=== PATIENT | male | born 1945 | race Caucasian/White ===

== ENCOUNTER → 2020-12-05 | Outpatient (CLI) | payer OTHER, MEDICARE ==
[~2020-12-05] MED LIST: AMLO10 PO; Bacid1 EACH PO; Cipro500 MG PO; ELIQUIS5 MG PO; Fish Oil 10001000 MG PO; GABA300 PO; METO10 PO; PANT20 PO; SERT100 PO; TRAZ100 PO; VITAMIN D3400 UNI2 PO; ZOCOR20 MG PO; Zantac150 MG PO
[2020-12-05 12:30] LABS: Bun/Creatinine Ratio 8.7 (12.0-20.0); Calcium, Blood 8.9 mg/dL (8.5-10.1); Creatinine, Blood 1.83 mg/dL (0.60-1.20); Potassium, Blood 3.6 mmol/L (3.5-5.5); Thyroid Stimulating Hormone 1.77 uIU/mL (0.360-4.800)
== END | disposition home or self-care (01) ==
LOC: LAB SHORT 11:49
PROVIDERS: Internal Medicine Cardiovascular Disease
DX: R00.2 Palpitations (principal); R42 Dizziness and giddiness
CPT/HCPCS: 80048; 84443

== ENCOUNTER 2021-01-20 09:42 | Day surgery (SDC) | payer OTHER ==
[~2021-01-20 09:42] MED LIST changes: +Crestor20 MG PO; -ZOCOR20 MG PO
[2021-01-20] MEDS ORDERED: K-TAB ER20 ME1 PO (11:02)
[2021-01-20] MEDS ORDERED: Prinivil10 MG PO (11:02)
[2021-01-20] MEDS ORDERED: TORSE20 PO (11:03)
--- NOTE | 2021-01-20 17:56 | NUR ---
SHIFT SUMMARY; ASSUMED CARE IN AFTERNOON FROM [facility], POST PACEMAKER PLACEMENT. PRESSURE DRESSING IN PLACE C/D/I. LEFT ARM SLING IN PLACE, INSTRUCTED TO NOT LIFT ARM. VSS, SPOUSE AT BEDSIDE IN AFTERNOON. PLEASANT AND COOPERATIVE WITH CARE. WILL CONTINUE TO TREAT AND MONITOR UNTIL CHANGE OF SHIFT.
[2021-01-21 04:11] LABS: Bun/Creatinine Ratio 10.2 (12.0-20.0); Calcium, Blood 8.8 mg/dL (8.5-10.1); Creatinine, Blood 2.16 mg/dL (0.60-1.20); Potassium, Blood 3.7 mmol/L (3.5-5.5)
--- NOTE | 2021-01-21 05:29 | NUR ---
SHIFT SUMMARY NO ACUTE CHANGES THIS SHIFT. VSS. AXO. ON RA. DUAL PACED AT TIMES. HTN NOTED, MEDS PER EMAR. SLING IN PLACE TO L ARM, NO EXCESS SWELING/REDNESS NOTED TO SITE, PT STATES AREA ONLY SLIGHTLY TENDER TO TOUCH. SUPRAPUBIC CATHETER PATENT AND DRAINING TO GRAVITY, DID NOT REQUIRE IRRIGATION THIS SHIFT.
--- NOTE | 2021-01-21 09:52 | NUR ---
CARE ASSUMPTION THIS RN ASSUMED CARE OF THIS PATIENT AT 0700. PATIENT IS A/OX4. VSS. PACEMAKER DRESSING INTACT. PATIENT REPORTS NO CHEST PAIN, PAIN OR SOB. SUPRABUPIC CATH DRAINING WITH GRAVITY. CALL LIGHT WITHIN REACH. WILL CONTINUE TO MONITOR AND PROVIDE CARE.
--- NOTE | 2021-01-21 15:38 | NUR ---
PATIENT DISCHARGE ABDIFATAH ISABEL PROVIDED PATIENT WITH DISCHARGE INSTRUCTIONS, GATHERED PATIENT BELONGINGS AND TOOK PATIENT TO PATIENT CAR VIA WHEELCHAIR.
--- NOTE | 2021-01-21 15:40 | NUR ---
PATIENT DISCHARGED AT APPROX 1540. REVIEWED DISCHARGE INSTRUCTIONS AND DISCHARGE MEDICATIONS WITH PATIENT AND HIS , NO FURTHER QUESTIONS AT TIME OF DISCHARGE. GAVE PATIENT HIS TEMPORARY PACEMAKER CARD AND PACEMAKER BOOKLET. PATIENT AWARE OF WOUND CHECK APPOINTMENT, CARDIOLOGY APPOINTMENT, AND TO SCHEDULE A FOLLOW UP APPOINTMENT WITH HIS PRIMARY CARE PROVIDER. AWARE OF PACEMAKER PRECAUTIONS AND INSTRUCTIONS. IV D/C'D BY SILVANA HERNÁNDEZ RN. ESCORTED PATIENT OUT VIA WHEELCHAIR AND HIS DROVE HIM HOME. NO FURTHER QUESTIONS AT TIME OF DISCHARGE.
== END 2021-01-21 15:43 | disposition home or self-care (01) ==
LOC: MHTC 09:42 → PCU 13:36 → MHTC 01-21 15:43
PROVIDERS: Internal Medicine Cardiovascular Disease
DX: I49.5 Sick sinus syndrome (principal); I48.0 Paroxysmal atrial fibrillation; E66.9 Obesity, unspecified; I65.23 Occlusion and stenosis of bilateral carotid arteries; E78.5 Hyperlipidemia, unspecified; R42 Dizziness and giddiness; R00.2 Palpitations; I13.0 Hypertensive heart and chronic kidney disease with heart failure and stage 1 through stage 4 chronic kidney disease, or unspecified chronic kidney disease; I50.32 Chronic diastolic (congestive) heart failure; N18.32 Chronic kidney disease, stage 3b; I71.3 Abdominal aortic aneurysm, ruptured; Z87.891 Personal history of nicotine dependence; J44.9 Chronic obstructive pulmonary disease, unspecified; Z88.8 Allergy status to other drugs, medicaments and biological substances
CPT/HCPCS: 33208; 36415; 71046; 80048; 99152; 99153; A9270; C1785; C1894; C1898; C9113; J0690; J1580; J1644; J2250; J3010; J7040

== ENCOUNTER → 2021-04-06 | Outpatient (CLI) | payer OTHER ==
[~2021-04-06] MED LIST changes: +K-TAB ER20 ME1 PO; +Prinivil10 MG PO; +TORSE20 PO
[2021-04-10 20:37] LABS: Creatinine Urine 26.4 mg/dL (27.00-270.00); Protein, Urine Quantitative 14.9 mg/dL (0.0-11.9)
== END | disposition home or self-care (01) ==
LOC: LAB SHORT 04:35 → LAB FUT 04-05 14:15
PROVIDERS: Internal Medicine Nephrology
DX: N18.30 Chronic kidney disease, stage 3 unspecified (principal); D63.1 Anemia in chronic kidney disease; N25.81 Secondary hyperparathyroidism of renal origin; E55.9 Vitamin D deficiency, unspecified; G60.9 Hereditary and idiopathic neuropathy, unspecified; E78.00 Pure hypercholesterolemia, unspecified; R76.9 Abnormal immunological finding in serum, unspecified; R94.5 Abnormal results of liver function studies; D51.8 Other vitamin B12 deficiency anemias; D52.8 Other folate deficiency anemias; D50.9 Iron deficiency anemia, unspecified
CPT/HCPCS: 81050; 82043; 82570; 84156

== ENCOUNTER 2021-09-20 13:01 | Emergency (ER) | payer OTHER ==
[~2021-09-20] VITALS: Ht 188 cm; Wt 112.5 kg
[2021-09-20 13:53] LABS: BASOPHILS ABSOLUTE AUTO 0.04 K/mm3 (0.00-0.23); BASOPHILS PERCENT AUTO 0 % (0-2); EOSINOPHILS ABSOLUTE AUTO 0.15 K/mm3 (0.00-0.68); EOSINOPHILS PERCENT AUTO 1 % (0-6); Hematocrit 28.7 % (37.0-53.0); IMMATURE GRAN ABSOLUTE AUTO 0.08 K/mm3 (0.00-0.10); IMMATURE GRAN PERCENT AUTO 1 % (0-1); LYMPHOCYTES ABSOLUTE AUTO 2.23 K/mm3 (0.84-5.20); LYMPHOCYTES PERCENT AUTO 18 % (21-46); MONOCYTES ABSOLUTE AUTO 1.08 K/mm3 (0.16-1.47); MONOCYTES PERCENT AUTO 9 % (4-13); Mean Corpuscular HGB 22.8 pg (26.0-34.0); Mean Corpuscular HGB Conc 31.4 g/dL (31.5-36.5); Mean Corpuscular Volume 73 fL (80-100); Mean Platelet Volume 9.5 fL (9.1-12.4); NEUTROPHILS ABSOLUTE AUTO 8.71 K/mm3 (1.96-9.15); NEUTROPHILS PERCENT AUTO 71 % (41-73); Platelet Count 237 K/mm3 (150-400); RDW Coefficient Variation 17.6 % (11.7-14.2); RDW Standard Deviation 46.9 fL (35.1-46.3); Red Blood Cell Count 3.94 M/mm3 (4.30-5.90); White Blood Cell Count 12.29 K/mm3 (4.00-11.30)
[2021-09-20 14:17] LABS: Albumin, Blood 3.3 g/dL (3.4-5.0); Albumin/Globulin Ratio 0.8 (0.8-1.8); Bilirubin, Total 0.4 mg/dL (0.1-1.0); Bun/Creatinine Ratio 10.1 (12.0-20.0); Calcium, Blood 9.4 mg/dL (8.5-10.1); Creatinine, Blood 1.99 mg/dL (0.60-1.20); Globulin, Blood 4.2 g/dL (2.2-4.0); Potassium, Blood 3.7 mmol/L (3.5-5.5); Total Protein, Blood 7.5 g/dL (6.4-8.2)
[2021-09-20 15:03] LABS: Source, Urine Clean Catch
[2021-09-20 15:08] LABS: Appearance, Urine Clear (Clear); Bilirubin, Urine Neg (Neg); Blood, Urine 4+ (Neg); Glucose Qualitative, Urine Neg (Neg); Ketones, Urine Neg (Neg); Leukocyte Esterase, Urine 2+ (Neg); Nitrite, Urine Neg (Neg); Protein, Urine Neg (Neg); Urobilinogen, Urine NORM (Normal)
[2021-09-20 16:21] LABS: Color, Urine Pale Yellow (P-Yellow)
[2021-09-20 16:23] LABS: Bacteria Mod /hpf; Red Blood Cells, Urine 0-2 /hpf (0-2); Squamous Epithelial Cells Rare /hpf (Few); White Blood Cells, Urine 0-2 /hpf (0-5)
== END 2021-09-20 17:00 | disposition home or self-care (01) ==
LOC: ER 13:01
PROVIDERS: Student in an Organized Health Care Education/Training Program
DX: N39.0 Urinary tract infection, site not specified (principal); I10 Essential (primary) hypertension; C61 Malignant neoplasm of prostate; W19.XXXA Unspecified fall, initial encounter; Z79.899 Other long term (current) drug therapy; Z79.01 Long term (current) use of anticoagulants; Z88.8 Allergy status to other drugs, medicaments and biological substances; Z87.891 Personal history of nicotine dependence
CPT/HCPCS: 36415; 80053; 81001; 85025; 93005; 93010; J0696; J7030

== ENCOUNTER → 2021-10-13 | Outpatient (CLI) | payer OTHER | END | disposition home or self-care (01) | LOC: LAB SHORT 17:19 | DX: N39.0 Urinary tract infection, site not specified (principal) | CPT/HCPCS: 87086 ==

== ENCOUNTER 2022-01-18 12:50 | Day surgery (SDC) | payer OTHER ==
[~2022-01-18] VITALS: Ht 188 cm; Wt 108.6 kg
[2022-01-18] MEDS ORDERED: ELIQUIS5 M2 PO (13:59)
[2022-01-18] MEDS ORDERED: METO50ER PO (14:02)
[2022-01-18] MEDS ORDERED: ALBU90OI INH (14:04)
[2022-01-18] MEDS ORDERED: FAMO20 PO (14:05)
== END 2022-01-18 14:41 | disposition home or self-care (01) ==
LOC: ORSCSDS 12:50
PROVIDERS: Ophthalmology
PROC: 08DJ3ZZ Extraction of Right Lens, Percutaneous Approach (ICD-10-PCS; principal; 2022-01-18 14:00)
DX: H25.11 Age-related nuclear cataract, right eye (principal); H21.81 Floppy iris syndrome; I12.9 Hypertensive chronic kidney disease with stage 1 through stage 4 chronic kidney disease, or unspecified chronic kidney disease; N18.30 Chronic kidney disease, stage 3 unspecified; I50.9 Heart failure, unspecified; Z95.0 Presence of cardiac pacemaker; E78.5 Hyperlipidemia, unspecified; E66.9 Obesity, unspecified; Z68.30 Body mass index [BMI] 30.0-30.9, adult; I48.0 Paroxysmal atrial fibrillation; I71.21 Aneurysm of the ascending aorta, without rupture; Z87.891 Personal history of nicotine dependence; Z79.899 Other long term (current) drug therapy
CPT/HCPCS: J2001; J2250; J3010; J3301; J7040; V2632

== ENCOUNTER 2022-01-25 10:51 | Day surgery (SDC) | payer OTHER ==
[~2022-01-25] VITALS: Ht 188 cm; Wt 108.6 kg
[~2022-01-25 10:51] MED LIST changes: +ALBU90OI INH; +ELIQUIS5 M2 PO; +FAMO20 PO; +METO50ER PO
--- NOTE | 2022-01-25 11:30 | NUR ---
01/25/22 1130 AMEENA GURROLA P: 1129 T: 1134
== END 2022-01-25 13:05 | disposition home or self-care (01) ==
LOC: ORSCSDS 10:51
PROVIDERS: Ophthalmology
PROC: 08DK3ZZ Extraction of Left Lens, Percutaneous Approach (ICD-10-PCS; principal; 2022-01-25 13:30)
DX: H25.12 Age-related nuclear cataract, left eye (principal); H21.81 Floppy iris syndrome; Z96.1 Presence of intraocular lens; I48.0 Paroxysmal atrial fibrillation; I12.9 Hypertensive chronic kidney disease with stage 1 through stage 4 chronic kidney disease, or unspecified chronic kidney disease; N18.9 Chronic kidney disease, unspecified; Z95.0 Presence of cardiac pacemaker; R06.00 Dyspnea, unspecified; E66.9 Obesity, unspecified; Z68.30 Body mass index [BMI] 30.0-30.9, adult; Z87.891 Personal history of nicotine dependence; Z79.899 Other long term (current) drug therapy
CPT/HCPCS: J2001; J2250; J3010; J3301; J7040; V2632

== ENCOUNTER 2022-02-10 09:43 | Emergency (ER) | payer OTHER ==
[2022-02-10] MEDS ORDERED: FOLI1 PO (11:34)
[2022-02-10] MEDS ORDERED: HYDR1TAB94 PO (11:48)
[2022-02-10] MEDS ORDERED: Cipro500 MG PO (11:48)
== END 2022-02-10 12:16 | disposition home or self-care (01) ==
DX: N13.30 Unspecified hydronephrosis (principal); I10 Essential (primary) hypertension; I48.91 Unspecified atrial fibrillation; Z87.891 Personal history of nicotine dependence; Z79.899 Other long term (current) drug therapy; Z79.01 Long term (current) use of anticoagulants

== ENCOUNTER 2022-02-12 12:35 | Inpatient (IN) | payer OTHER ==
[~2022-02-12] VITALS: Ht 188 cm; Wt 103.8 kg
[~2022-02-12 12:35] MED LIST changes: +FOLI1 PO; +HYDR1TAB94 PO
[2022-02-12 13:55] LABS: BASOPHILS ABSOLUTE AUTO 0.03 K/mm3 (0.00-0.23); BASOPHILS PERCENT AUTO 0 % (0-2); EOSINOPHILS PERCENT AUTO 0 % (0-6); Hematocrit 37.3 % (37.0-53.0); Hemoglobin 11.8 g/dL (13.5-17.5); IMMATURE GRAN ABSOLUTE AUTO 0.11 K/mm3 (0.00-0.10); IMMATURE GRAN PERCENT AUTO 1 % (0-1); LYMPHOCYTES ABSOLUTE AUTO 1.09 K/mm3 (0.84-5.20); LYMPHOCYTES PERCENT AUTO 7 % (21-46); MONOCYTES ABSOLUTE AUTO 1.57 K/mm3 (0.16-1.47); MONOCYTES PERCENT AUTO 10 % (4-13); Mean Corpuscular HGB 24.3 pg (26.0-34.0); Mean Corpuscular HGB Conc 31.6 g/dL (31.5-36.5); Mean Corpuscular Volume 77 fL (80-100); Mean Platelet Volume 9.6 fL (9.1-12.4); NEUTROPHILS ABSOLUTE AUTO 13.53 K/mm3 (1.96-9.15); NEUTROPHILS PERCENT AUTO 83 % (41-73); Platelet Count 273 K/mm3 (150-400); RDW Coefficient Variation 24.9 % (11.7-14.2); RDW Standard Deviation 65.6 fL (35.1-46.3); Red Blood Cell Count 4.85 M/mm3 (4.30-5.90); White Blood Cell Count 16.33 K/mm3 (4.00-11.30)
[2022-02-12 14:35] LABS: Albumin, Blood 3.3 g/dL (3.4-5.0); Albumin/Globulin Ratio 0.7 (0.8-1.8); Bilirubin, Total 0.7 mg/dL (0.1-1.0); Bun/Creatinine Ratio 14.2 (12.0-20.0); Creatinine, Blood 2.33 mg/dL (0.60-1.20); Potassium, Blood 3.5 mmol/L (3.5-5.5); Total Protein, Blood 8.3 g/dL (6.4-8.2)
[2022-02-12 15:00] LABS: Source, Urine Foley catheter
[2022-02-12 15:06] LABS: Appearance, Urine Turbid (Clear); Bilirubin, Urine Neg (Neg); Blood, Urine 5+ (Neg); Glucose Qualitative, Urine Neg (Neg); Ketones, Urine Neg (Neg); Leukocyte Esterase, Urine 2+ (Neg); Nitrite, Urine Neg (Neg); Protein, Urine 4+ (Neg); Specific Gravity, Urine 1.015 (1.003-1.022); Urobilinogen, Urine NORM (Normal)
[2022-02-12 15:21] LABS: Red Blood Cells, Urine TNTC /hpf (0-2)
[2022-02-12 15:22] LABS: Amorphous Light (0-Heavy); Bacteria Mod /hpf; Renal Epithelial Few /hpf (0-Rare); Squamous Epithelial Cells Rare /hpf (Few)
[2022-02-12 15:29] LABS: Influenza A, PCR NEGATIVE (NEGATIVE); Influenza B, PCR NEGATIVE (NEGATIVE); Resp Syncytial Virus, PCR NEGATIVE (NEGATIVE); SARS-Cov-2 (COVID-19) PCR, MMC NEGATIVE (NEGATIVE)
[2022-02-12] MEDS ORDERED: EPOGEN4000 UNIT/ (20:19)
[2022-02-12] MEDS ORDERED: PANT20 PO (20:22)
--- NOTE | 2022-02-12 20:25 | NUR ---
Patient admitted for UTI r/t Suprapubic catheter, ED RN reported patient c/o N/V unable to take home meds, hematuria since saturday. Patient hypertension, recent vitals showed Systolic >204, IV Metop was given. RN said she would recheck BP, and notify MD. This RN called admitting MD Dr. Lopez, instructed to give more IV Metop, and discussed ICU vs PCU unit. MD said it was okay to transfer to PCU [facility]. Called ED Charge to report change in transfer, the charge said that the recent BP was 173/97, IV PRN worked and vitals stable. Patient arrived to medical floor at 1845. Patient had full body rigors, verbalized feeling that he could not breath, and was cold. ekg tech stated these symptoms suddenly developed while in the elevator, the family confirmed this. He was comfortable in ED, and change in condition occured, during transport. Difficult to obtain vital r/t full body shaking. Patient sitting in bed in tripod position, applied 2lpm NC, sats varied between 88%-92% d/t shallow/rapid RR, RR was 30/minute. Called admitting MD Dr. Lopez, and reported concerns, MD stated he was no longer in hosptial & to call charge nurses and call Rapid Response. Dr. Steele, RT, resposne team & bedside, stabilzied patient and moved patient to ICU. Patient appears more comfortable, no longer shaking, RR even/nonlabored, patient continues to endore "difficulty breathing". Called and gave handoff report to DIRECTOR OF RESERVATIONS.
[2022-02-12 20:31] LABS: Creatine Kinase MB 3.5 ng/mL (0.0-3.6); Creatine Kinase MB Index 0.9 (0.0-4.0)
[2022-02-13 04:36] LABS: BASOPHILS ABSOLUTE AUTO 0.02 K/mm3 (0.00-0.23); BASOPHILS PERCENT AUTO 0 % (0-2); EOSINOPHILS PERCENT AUTO 0 % (0-6); Hematocrit 34.7 % (37.0-53.0); Hemoglobin 10.9 g/dL (13.5-17.5); IMMATURE GRAN ABSOLUTE AUTO 0.05 K/mm3 (0.00-0.10); IMMATURE GRAN PERCENT AUTO 1 % (0-1); LYMPHOCYTES ABSOLUTE AUTO 0.63 K/mm3 (0.84-5.20); LYMPHOCYTES PERCENT AUTO 8 % (21-46); MONOCYTES ABSOLUTE AUTO 0.65 K/mm3 (0.16-1.47); MONOCYTES PERCENT AUTO 8 % (4-13); Mean Corpuscular HGB 24.3 pg (26.0-34.0); Mean Corpuscular HGB Conc 31.4 g/dL (31.5-36.5); Mean Corpuscular Volume 78 fL (80-100); Mean Platelet Volume 9.3 fL (9.1-12.4); NEUTROPHILS ABSOLUTE AUTO 6.75 K/mm3 (1.96-9.15); NEUTROPHILS PERCENT AUTO 83 % (41-73); Platelet Count 231 K/mm3 (150-400); RDW Standard Deviation 66.6 fL (35.1-46.3); Red Blood Cell Count 4.48 M/mm3 (4.30-5.90)
[2022-02-13 04:53] LABS: Albumin, Blood 2.9 g/dL (3.4-5.0); Albumin/Globulin Ratio 0.7 (0.8-1.8); Bilirubin, Total 0.4 mg/dL (0.1-1.0); Bun/Creatinine Ratio 14.2 (12.0-20.0); Calcium, Blood 9.3 mg/dL (8.5-10.1); Creatinine, Blood 1.97 mg/dL (0.60-1.20); Globulin, Blood 4.3 g/dL (2.2-4.0); Magnesium, Blood 2.3 mg/dL (1.6-2.4); Potassium, Blood 3.3 mmol/L (3.5-5.5); Total Protein, Blood 7.2 g/dL (6.4-8.2)
[2022-02-13 06:10] LABS: Source, Urine Suprapubic Cath
--- NOTE | 2022-02-13 06:10 | NUR ---
SHIT SUMMARY: RIGHT UPPER ARM POWERGLIDE PLACED. LR INFUSING @ 125ML/HR X2 BAGS. UNCONTROLLED HTN. 10MG HYDRALAZINE GIVEN, THEN 20MG HYDRALAZINE GIVEN, THEN 10MG LABETALOL IVP. PT SUSTAINED HR BETWEEN 60-70S. SMALL IMPROVEMENT WITH LABETALOL IN HTN. SUPRAPUBIC CATHERTER EXCHANGED AND URINE SENT TO LAB. ZOFRAN GIVEN FOR NAUSEA/DRY HEAVING. TYLENOL GIVEN FOR ELEVATED TEMP. PT ON 5L NC. DENIES CHEST PAIN. TROPONINS TRENDING UPWARD.
[2022-02-13 06:19] LABS: Appearance, Urine Hazy (Clear); Bilirubin, Urine Neg (Neg); Blood, Urine 5+ (Neg); Color, Urine Yellow (P-Yellow); Glucose Qualitative, Urine Neg (Neg); Ketones, Urine Neg (Neg); Leukocyte Esterase, Urine 2+ (Neg); Nitrite, Urine Neg (Neg); Protein, Urine 3+ (Neg); Specific Gravity, Urine 1.015 (1.003-1.022); Urobilinogen, Urine NORM (Normal)
[2022-02-13 06:36] LABS: Bacteria Mod /hpf; Red Blood Cells, Urine 50-100 /hpf (0-2); Squamous Epithelial Cells Rare /hpf (Few)
--- NOTE | 2022-02-13 09:18 | NUR ---
LABETOLOL WAS GIVEN AT 0815 FOR HYPERTENSION, PERSISTENT. BLOOD PRESSURE ONE HOUR LATER IS STILL QUITE HIGH.
[2022-02-13] MEDS ORDERED: TIOT18 INH (10:21)
[2022-02-13] MEDS ORDERED: Acetic Acid1000 ML IR (10:22)
[2022-02-13] MEDS ORDERED: LACT PO (10:23)
[2022-02-13] MEDS ORDERED: PRED FORTE5 ML UD (11:59)
--- NOTE | 2022-02-13 13:21 | NUR ---
1200 Pt said that he did not want to have lunch; states that he just doesn't feel good, felt nauseated.
--- NOTE | 2022-02-13 13:25 | NUR ---
1200 Dr. Lopez rounded just a few minutes ago. Spoke with him about concerns re: persistently high blood pressure, PRN medications given, and updated home med reconciliation with pt's . Doctor states that he will look over the meds and order as indicated.
--- NOTE | 2022-02-13 14:48 | NUR ---
The pt has been c/o nausea and dry heaves since around noon. This abated somewhat about an hour ago, and oral antihypertensives were given as ordered. He was able to keep them down. is at the bedside. Pt has basically been napping in between conversations and nursing care, states that he just doesn't feel well. Has been asking for and drinking water, but has not wanted anything else by mouth.
--- NOTE | 2022-02-13 16:39 | NUR ---
Dr Lopez here; discussed the pt's ongoing hypertension. New order received for nicardipine gtt. Started at this time. Pt continues to c/o nausea and dry heaves.
--- NOTE | 2022-02-13 18:17 | NUR ---
Pt continues to have nausea, dry heaves. He is alert, oriented, and appropriate in conversation. No neurological deficits noted. Blood pressure remains persistent, nicardipine gtt titrated up.
--- NOTE | 2022-02-13 18:51 | NUR ---
Call to Dr. Lopez to update on pt's blood pressure and max dose of nicardipine gtt at this time. New order received.
--- NOTE | 2022-02-13 19:15 | NUR ---
ASSUMPTION OF CARE NOTE PT IS ON ROOM AIR, ALERT AND ORIENTED X4. IS AT BEDSIDE. HE IS SR ON THE MONITOR. NICARDIPINE INFUSING FOR HTN. NO COMPLAINTS OF CHEST PAIN/PRESSURE. NO S/S OF ACUTE RESP DISTRESS. SUPRAPUBIC CATH INTACT AND DRAINING. NO S/S OF ACUTE DISTRESS NOTED AT TIME OF ASSUMPTION OF CARE.
--- NOTE | 2022-02-13 20:02 | NUR ---
NOTIFIED DR PETERSEN OF PT PERSISTANT NAUSEA/DRY HEAVING DESPITE RECENTLY BEING MEDICATED W/ZOFRAN. ORDERS GIVEN, SEE EMAR
--- NOTE | 2022-02-14 06:37 | NUR ---
SHIFT SUMMERY NICARDIPINE DRIP WAS WEANED OFF LAST NIGHT. PT NAUSEA RESOLVED. BP WNL AT THIS TIME. AFEBRILE. SUPRAPUBIC CATH PRESENT, CHRONIC. NO ACUTE EVENTS OVER NIGHT. PT IS ON ROOM AIR, SR ON THE MONITOR.
[2022-02-14 09:01] LABS: BASOPHILS ABSOLUTE AUTO 0.02 K/mm3 (0.00-0.23); BASOPHILS PERCENT AUTO 0 % (0-2); EOSINOPHILS ABSOLUTE AUTO 0.11 K/mm3 (0.00-0.68); EOSINOPHILS PERCENT AUTO 2 % (0-6); Hematocrit 33.5 % (37.0-53.0); Hemoglobin 10.4 g/dL (13.5-17.5); IMMATURE GRAN ABSOLUTE AUTO 0.04 K/mm3 (0.00-0.10); IMMATURE GRAN PERCENT AUTO 1 % (0-1); LYMPHOCYTES ABSOLUTE AUTO 1.13 K/mm3 (0.84-5.20); LYMPHOCYTES PERCENT AUTO 15 % (21-46); MONOCYTES ABSOLUTE AUTO 0.67 K/mm3 (0.16-1.47); MONOCYTES PERCENT AUTO 9 % (4-13); Mean Corpuscular HGB 24.6 pg (26.0-34.0); Mean Corpuscular Volume 79 fL (80-100); Mean Platelet Volume 9.4 fL (9.1-12.4); NEUTROPHILS ABSOLUTE AUTO 5.54 K/mm3 (1.96-9.15); NEUTROPHILS PERCENT AUTO 74 % (41-73); Platelet Count 252 K/mm3 (150-400); RDW Coefficient Variation 24.9 % (11.7-14.2); RDW Standard Deviation 68.4 fL (35.1-46.3); Red Blood Cell Count 4.23 M/mm3 (4.30-5.90); White Blood Cell Count 7.51 K/mm3 (4.00-11.30)
[2022-02-14 09:20] LABS: Bun/Creatinine Ratio 12.4 (12.0-20.0); Calcium, Blood 9.2 mg/dL (8.5-10.1); Creatinine, Blood 1.7 mg/dL (0.60-1.20)
--- NOTE | 2022-02-14 09:43 | NUR ---
ASSUMED CARE REPORT FROM TK ISABEL AT 0700. PT RESTING IN BED A&OX 4. FOLLOWS DIRECTIONS, ANSWERS QUESTIONS APPROPRIATELY. STATES HE IS FEELING BETTER TODAY OTHER THAN NAUSEA POST BREAKFAST, RESOLVED c PHENERGAN. ATE 75% OF BREAKFAST. SR, RATE 80, ON DEMAND PACER. BP STABLE. NICARDIPINE GTT ON STANDBY. ORAL MEDS GIVEN. ABD ROUND, SOFT, NON TENDER. BT X 4. MAEW, UP TO RECLINER. USES CALL LIGHT APPROPRIATELY. WILL CONTINUE TO MONITOR.
--- NOTE | 2022-02-14 18:44 | NUR ---
SHIFT SUMMARY NO ACUTE CHANGES THIS SHIFT. STATUS CHANGED TO MED s TELE. DENIES NEEDS OR COMPLAINTS. UP TO CHAIR FOR 2 HOURS. STANDBY ASSIST c WALKER. BP STABLE. AT BEDSIDE. SUPRAPUBIC HUGHES PATENT, 1600 ML OUT THIS SHIFT. WILL CONTINUE TO MONITOR UNTIL REPORT TO ONCOMING NURSE.
--- NOTE | 2022-02-14 19:15 | NUR ---
ASSUMED CARE OF PT @1900 FROM BOONE ISABEL. PT RESTING COMFORTABLY. A&O X4. BEDSIDE. PG DAREK PATENT W/SALINE LOCK, IV 20GA L HAND PATENT W/SALINE LOCK. SUPRAPUBIC CATH PRESENT AND DRAINING TO GRAVITY.
[2022-02-15 04:41] LABS: BASOPHILS ABSOLUTE AUTO 0.04 K/mm3 (0.00-0.23); BASOPHILS PERCENT AUTO 1 % (0-2); EOSINOPHILS ABSOLUTE AUTO 0.14 K/mm3 (0.00-0.68); EOSINOPHILS PERCENT AUTO 3 % (0-6); Hematocrit 31.8 % (37.0-53.0); IMMATURE GRAN ABSOLUTE AUTO 0.04 K/mm3 (0.00-0.10); IMMATURE GRAN PERCENT AUTO 1 % (0-1); LYMPHOCYTES ABSOLUTE AUTO 1.86 K/mm3 (0.84-5.20); LYMPHOCYTES PERCENT AUTO 33 % (21-46); MONOCYTES ABSOLUTE AUTO 0.61 K/mm3 (0.16-1.47); MONOCYTES PERCENT AUTO 11 % (4-13); Mean Corpuscular HGB 24.4 pg (26.0-34.0); Mean Corpuscular HGB Conc 31.4 g/dL (31.5-36.5); Mean Corpuscular Volume 78 fL (80-100); Mean Platelet Volume 9.2 fL (9.1-12.4); NEUTROPHILS ABSOLUTE AUTO 2.89 K/mm3 (1.96-9.15); NEUTROPHILS PERCENT AUTO 52 % (41-73); Platelet Count 227 K/mm3 (150-400); RDW Coefficient Variation 24.5 % (11.7-14.2); RDW Standard Deviation 66.7 fL (35.1-46.3); Red Blood Cell Count 4.09 M/mm3 (4.30-5.90); White Blood Cell Count 5.58 K/mm3 (4.00-11.30)
--- NOTE | 2022-02-15 04:42 | NUR ---
PT HYPERTENSIVE. 173/82 PRN LABETALOL GIVEN.
[2022-02-15 05:02] LABS: Creatinine, Blood 1.62 mg/dL (0.60-1.20); Magnesium, Blood 2.3 mg/dL (1.6-2.4); Potassium, Blood 3.6 mmol/L (3.5-5.5)
--- NOTE | 2022-02-15 06:37 | NUR ---
SUMMARY: NO ACUTE EVENTS OVERNIGHT. PT SLEPT MOST OF THE NIGHT. HYPERTENSION TREATED W/PRN LABETALOL. HR 60'S, SBP 150-170'S. RR <20, SPO2 >94%. SUPRAPUBIC CATH PATENT W/1600MLS URINE OUTPUT THIS SHIFT.
[2022-02-15] MEDS ORDERED: AMLO10 PO (11:39)
[2022-02-15] MEDS ORDERED: CATAPRES0.1 MG PO (11:41)
[2022-02-15] MEDS ORDERED: LEVFLO500 PO (11:57)
--- NOTE | 2022-02-15 12:43 | NUR ---
DISCHARGE ALL INSTRUCTIONS REVIEWED c PT AND SPOUSE. VERBALIZED UNDERSTANDING. MEDS FAXED TO [facility]. IVS REMOVED. ALL BELONGINGS SENT c PT. ESCORTED OUT IN .
== END 2022-02-15 13:01 | disposition home or self-care (01) | DRG 698 ==
LOC: ER 12:35 → ICUW 16:18 → MEDS 16:18 → ICUW 19:53
PROVIDERS: Emergency Medicine; Family Medicine; Student in an Organized Health Care Education/Training Program; ADMIT Student in an Organized Health Care Education/Training Program
DX: T83.518A Infection and inflammatory reaction due to other urinary catheter, initial encounter (principal); A41.81 Sepsis due to Enterococcus; N39.0 Urinary tract infection, site not specified; N17.9 Acute kidney failure, unspecified; I50.32 Chronic diastolic (congestive) heart failure; I13.0 Hypertensive heart and chronic kidney disease with heart failure and stage 1 through stage 4 chronic kidney disease, or unspecified chronic kidney disease; N18.30 Chronic kidney disease, stage 3 unspecified; I48.91 Unspecified atrial fibrillation; I16.0 Hypertensive urgency; Z20.822 Contact with and (suspected) exposure to COVID-19; B96.89 Other specified bacterial agents as the cause of diseases classified elsewhere; G25.81 Restless legs syndrome; F32.A Depression, unspecified; J44.9 Chronic obstructive pulmonary disease, unspecified; K21.9 Gastro-esophageal reflux disease without esophagitis; M10.9 Gout, unspecified; E78.5 Hyperlipidemia, unspecified; Z85.46 Personal history of malignant neoplasm of prostate; Z79.899 Other long term (current) drug therapy; Z79.811 Long term (current) use of aromatase inhibitors; Z79.01 Long term (current) use of anticoagulants; Z79.51 Long term (current) use of inhaled steroids; Z79.891 Long term (current) use of opiate analgesic; Z79.2 Long term (current) use of antibiotics; Z92.3 Personal history of irradiation; Z98.890 Other specified postprocedural states; Z98.49 Cataract extraction status, unspecified eye; Z87.891 Personal history of nicotine dependence; Z95.0 Presence of cardiac pacemaker; Y84.6 Urinary catheterization as the cause of abnormal reaction of the patient, or of later complication, without mention of misadventure at the time of the procedure
CPT/HCPCS: 0241U; 36415; 51702; 71045; 76770; 80048; 80053; 81001; 82550; 82553; 83605; 83690; 83735; 83880; 84145; 84484; 85025; 87077; 87086; 87186; 93005; 93010; 93308; 93321; 96365; 96375; 99285-25; A9270; C1751; J0360; J0696; J1644; J2185; J2270; J2405; J2543; J2550; J7030; J7050; J7120

== ENCOUNTER 2023-05-05 14:10 | Inpatient (IN) | payer OTHER ==
[~2023-05-05] VITALS: Ht 188 cm; Wt 113.4 kg
[~2023-05-05 14:10] MED LIST changes: +Acetic Acid1000 ML IR; +CATAPRES0.1 MG PO; +EPOGEN4000 UNIT/; +LACT PO; +LEVFLO500 PO; +LISI20 PO; +PRED FORTE5 ML UD; -Prinivil10 MG PO; +TIOT18 INH
[2023-05-05 15:14] LABS: BASOPHILS ABSOLUTE AUTO 0.05 K/mm3 (0.00-0.23); BASOPHILS PERCENT AUTO 1 % (0-2); EOSINOPHILS ABSOLUTE AUTO 0.19 K/mm3 (0.00-0.68); EOSINOPHILS PERCENT AUTO 3 % (0-6); Hematocrit 37.9 % (37.0-53.0); Hemoglobin 13.1 g/dL (13.5-17.5); IMMATURE GRAN ABSOLUTE AUTO 0.07 K/mm3 (0.00-0.10); IMMATURE GRAN PERCENT AUTO 1 % (0-1); LYMPHOCYTES ABSOLUTE AUTO 1.35 K/mm3 (0.84-5.20); LYMPHOCYTES PERCENT AUTO 19 % (21-46); MONOCYTES ABSOLUTE AUTO 0.66 K/mm3 (0.16-1.47); MONOCYTES PERCENT AUTO 9 % (4-13); Mean Corpuscular HGB 29.2 pg (26.0-34.0); Mean Corpuscular HGB Conc 34.6 g/dL (31.5-36.5); Mean Corpuscular Volume 85 fL (80-100); Mean Platelet Volume 8.7 fL (9.1-12.4); NEUTROPHILS ABSOLUTE AUTO 4.75 K/mm3 (1.96-9.15); NEUTROPHILS PERCENT AUTO 67 % (41-73); Platelet Count 324 K/mm3 (150-400); RDW Standard Deviation 40.2 fL (35.1-46.3); Red Blood Cell Count 4.48 M/mm3 (4.30-5.90); White Blood Cell Count 7.07 K/mm3 (4.00-11.30)
[2023-05-05 15:40] LABS: Albumin, Blood 3.5 g/dL (3.4-5.0); Albumin/Globulin Ratio 0.7 (0.8-1.8); Bilirubin, Total 0.6 mg/dL (0.1-1.0); Bun/Creatinine Ratio 12.7 (12.0-20.0); Calcium, Blood 9.3 mg/dL (8.5-10.1); Creatinine, Blood 1.34 mg/dL (0.60-1.20); Globulin, Blood 4.7 g/dL (2.2-4.0); Potassium, Blood 4.7 mmol/L (3.5-5.5); Total Protein, Blood 8.2 g/dL (6.4-8.2)
[2023-05-05] MEDS ORDERED: PANT20 PO (18:33)
[2023-05-05 18:38] LABS: Source, Urine Suprapubic Cath
[2023-05-05 18:56] LABS: Appearance, Urine Cloudy (Clear); Bilirubin, Urine Neg (Neg); Blood, Urine 5+ (Neg); Color, Urine Brown (P-Yellow); Glucose Qualitative, Urine Neg (Neg); Ketones, Urine Neg (Neg); Leukocyte Esterase, Urine 3+ (Neg); Nitrite, Urine Pos (Neg); Protein, Urine 3+ (Neg); Urobilinogen, Urine NORM (Normal)
[2023-05-05 19:08] LABS: Bacteria Many /hpf; Granular Casts 0-2 /lpf (0); Squamous Epithelial Cells Rare /hpf (Few)
[2023-05-05] MEDS ORDERED: CefTRIAXone Sodium 1,000 MG in NS 50 ML IV ONE (19:35)
[2023-05-05] MEDS ORDERED: NS 1,000 ML IV SCH ×2 (19:35→20:25)
[2023-05-05] MEDS ORDERED: Acetaminophen 325 MG TABLET PO PRN (20:25)
[2023-05-05] MEDS ORDERED: FLU VACC QS2023-24(6MOS UP)/PF 60 MCG/0.5 ML SYRINGE IM ONE (20:25)
[2023-05-05] MEDS ORDERED: Ondansetron HCl 2 MG / ML 2ML Vial IV PRN (20:25)
[2023-05-05] MEDS ORDERED: CloNIDine 0.1 MG Tab PO PRN (20:35)
[2023-05-05] MEDS ORDERED: Rosuvastatin Calcium 10 MG Tab PO SCH (21:00)
[2023-05-05] MEDS ORDERED: NS 500 ML IV ONE (21:00)
[2023-05-05] MEDS ORDERED: TraZODone HCl 100 MG Tab PO SCH (21:00)
[2023-05-05] MEDS ORDERED: Apixaban 5 MG Tab PO SCH (21:00)
[2023-05-05] MEDS ORDERED: Gabapentin 300 MG Cap PO SCH (21:00)
[2023-05-05] MEDS ORDERED: Lactobacil 2-S.Thermo-Bifido 1 1 Cap PO SCH (21:00)
[2023-05-05 23:07] VITALS: BP 180/93
[2023-05-06 05:16] VITALS: BP 130/77
[2023-05-06] MEDS ORDERED: Pantoprazole Sodium 20 MG Tab PO SCH (06:00)
[2023-05-06 06:48] LABS: Bun/Creatinine Ratio 11.2 (12.0-20.0); Calcium, Blood 8.5 mg/dL (8.5-10.1); Creatinine, Blood 1.34 mg/dL (0.60-1.20); Potassium, Blood 3.6 mmol/L (3.5-5.5)
[2023-05-06 07:15] VITALS: BP 117/77
--- NOTE | 2023-05-06 08:57 | NUR ---
SHIFT SUMMARY PT ARRIVED TO ROOM 336 AROUND 2240 FROM ER VIA GURNEY WITH AT BEDSIDE. PT TRANSFERED SELF TO HOSPITAL BED WITH MINIMAL ASSIST, STAND PIVOT. HE USES A WALKER AT BASELINE. KIARA IS A&OX4, PLEASANT AND COOPERATIVE WITH CARES. VSS, ELEVATED BP WITH SYS @180, PRN CATAPRES GIVEN, ON RA. C/O GENERALIZED PAIN, MEDICATED PER EMAR. ON A REGULAR DIET, PT CONSUMES LARGE AMOUNTS OF WATER. SP CATHETER DRAINING LARGE AMOUNTS OF WATERMELON COLORED URINE. PT STATES HIS CATHETER FREQUENTLY CLOGS D/T THE SLOUGHING OF MEMBRANES FROM HIS RECONTRUCTIVE SURGERY. THIS RN WAS ABLE TO WITHDRAW BACK USING A MAURICE SYRINGE. PT HAD BROWN SOFT BM IN TOILET THIS SHIFT, BUT FLUSHED BEFORE VISUALIZATION BY THIS RN. BED IN LOWEST POSITION, CALL LIGHT WITHIN REACH. BED ALARM SET FOR PT'S SAFETY, CALLS APPROPRIATELY.
[2023-05-06] MEDS ORDERED: Lisinopril 20 MG Tab PO SCH (09:00)
[2023-05-06] MEDS ORDERED: AmLODIPine Besylate 5 MG Tab PO SCH (09:00)
[2023-05-06] MEDS ORDERED: Sertraline HCl 100 MG Tab PO SCH (09:00)
[2023-05-06] MEDS ORDERED: Enoxaparin 40 MG/0.4 ML SYR SC SCH (09:00)
[2023-05-06] MEDS ORDERED: Metoprolol Succinate 50 MG TABCR PO SCH (09:00)
[2023-05-06] MEDS ORDERED: Gabapentin 300 MG Cap PO SCH (09:00)
[2023-05-06] MEDS ORDERED: Famotidine 20 MG Tab PO SCH (09:00)
[2023-05-06] MEDS ORDERED: NS 1,000 ML IV SCH (09:40)
[2023-05-06 15:45] VITALS: BP 131/73
--- NOTE | 2023-05-06 17:52 | NUR ---
SHIFT SUMMARY Pt remains A&Ox3 this shift. [place]. brought hearing aids, dentures and electric shaver. VSS. Denies pain. Resp even nonlabored on RA. Suprapubic cath CDI, draining pale yellow with sediment noted. Tolerating meals. No acute distress this shift. Pain and safety maintained.
[2023-05-06 20:04] VITALS: BP 138/87
[2023-05-06] MEDS ORDERED: CefTRIAXone Sodium 1,000 MG in NS 50 ML IV SCH (21:00)
[2023-05-06] MEDS ORDERED: MUPIROCIN1 G1 TOP (22:37)
[2023-05-06] MEDS ORDERED: Cyclobenzaprine5 MG PO (22:38)
[2023-05-06] MEDS ORDERED: MULVITA PO (22:38)
[2023-05-06] MEDS ORDERED: Norco 5-325 Ta1 EACH PO (22:39)
[2023-05-06] MEDS ORDERED: METO10 PO (22:40)
[2023-05-06] MEDS ORDERED: ATOR10 PO (22:40)
[2023-05-06] MEDS ORDERED: ALBU90OI INH (22:42)
[2023-05-06] MEDS ORDERED: SPIRIVA RESPIMAT4 G3 INH (22:42)
[2023-05-06] MEDS ORDERED: GABA300 PO (22:44)
[2023-05-07 04:36] VITALS: BP 144/80
[2023-05-07 07:26] VITALS: BP 151/87
[2023-05-07 08:23] LABS: Bun/Creatinine Ratio 10.5 (12.0-20.0); Calcium, Blood 9.2 mg/dL (8.5-10.1); Creatinine, Blood 1.53 mg/dL (0.60-1.20); Potassium, Blood 3.9 mmol/L (3.5-5.5)
--- NOTE | 2023-05-07 08:38 | NUR ---
SHIFT SUMMARY PT IS A&OX4, VERY [place]. VSS ON RA. C/O PAIN IN HIS NECK, MEDICATED PER EMAR. TOLERATING A REGULAR DIET. S.P. CATHETER DRAINING LIGHT YELLOW URINE, NO MUCOSA NOTED. PT DENIES BLADDER SPASMS. THIS RN DID NOT HAVE TO IRRIGATE CATHETER. NO BM THIS SHIFT. X1 ASSIST WITH FWW. BED IN LOWEST POSITION, CALL LIGHT WITHIN REACH. PT IS HOPING TO GET TO GO HOME TODAY.
[2023-05-07] MEDS ORDERED: CEPH500 PO (11:44)
--- NOTE | 2023-05-07 15:15 | NUR ---
PT DISCHARGED THE PT AND HIS VERBALIZED UNDERSTANDING OF THE DC INSTRUCTIONS. [facility]. PT WAS REMINDED TO FOLLOW UP WITH HIS PCP. THE PT WAS TRANSFERED VIA WHEELCHAIR ACCOMPANIED BY THE MECHANICAL ENGINEERING SPECIALIST AND HIS
== END 2023-05-07 12:49 | disposition home or self-care (01) | DRG 698 ==
LOC: ER 14:10 → MEDS 20:21 → ENPENDDIS 05-07 09:52 → MEDS 05-07 12:49
PROVIDERS: Internal Medicine; Nurse Practitioner Acute Care; Student in an Organized Health Care Education/Training Program; ADMIT Internal Medicine
DX: T83.510A Infection and inflammatory reaction due to cystostomy catheter, initial encounter (principal); G92.8 Other toxic encephalopathy; E87.1 Hypo-osmolality and hyponatremia; N39.0 Urinary tract infection, site not specified; I48.20 Chronic atrial fibrillation, unspecified; B96.1 Klebsiella pneumoniae [K. pneumoniae] as the cause of diseases classified elsewhere; I12.9 Hypertensive chronic kidney disease with stage 1 through stage 4 chronic kidney disease, or unspecified chronic kidney disease; E78.5 Hyperlipidemia, unspecified; K21.9 Gastro-esophageal reflux disease without esophagitis; F32.A Depression, unspecified; R31.29 Other microscopic hematuria; E86.0 Dehydration; N18.30 Chronic kidney disease, stage 3 unspecified; Z79.01 Long term (current) use of anticoagulants; Z85.46 Personal history of malignant neoplasm of prostate
CPT/HCPCS: 36415; 80048; 80053; 81001; 82550; 83930; 83935; 84295; 84300; 85025; 87077; 87086; 87186; 96361; 96365; 99284-25; A9270; C9113; J0696; J7030; J7040

== ENCOUNTER 2024-12-30 12:49 | Inpatient (IN) | payer OTHER ==
[~2024-12-30] VITALS: Ht 188 cm; Wt 113.0 kg
[~2024-12-30 12:49] MED LIST changes: +ATOR10 PO; +AZIT250 PO; +CEPH500 PO; +CIPR500 PO; +Cyclobenzaprine5 MG PO; +FURO20 PO; +MULVITA PO; +MUPIROCIN1 G1 TOP; +Norco 5-325 Ta1 EACH PO; +SPIRIVA RESPIMAT4 G3 INH
[2024-12-30 14:14] LABS: BASOPHILS ABSOLUTE AUTO 0.04 K/mm3 (0.00-0.23); BASOPHILS PERCENT AUTO 1 % (0-2); EOSINOPHILS ABSOLUTE AUTO 0.14 K/mm3 (0.00-0.68); EOSINOPHILS PERCENT AUTO 2 % (0-6); Hematocrit 34.4 % (37.0-53.0); Hemoglobin 11.9 g/dL (13.5-17.5); IMMATURE GRAN ABSOLUTE AUTO 0.08 K/mm3 (0.00-0.10); IMMATURE GRAN PERCENT AUTO 1 % (0-1); LYMPHOCYTES ABSOLUTE AUTO 1.03 K/mm3 (0.84-5.20); LYMPHOCYTES PERCENT AUTO 13 % (21-46); MONOCYTES ABSOLUTE AUTO 0.84 K/mm3 (0.16-1.47); MONOCYTES PERCENT AUTO 11 % (4-13); Mean Corpuscular HGB Conc 34.6 g/dL (31.5-36.5); Mean Corpuscular Volume 88 fL (80-100); NEUTROPHILS ABSOLUTE AUTO 5.75 K/mm3 (1.96-9.15); NEUTROPHILS PERCENT AUTO 73 % (41-73); NRBC ABSOLUTE 0.00 K/mm3 (0.00-0.02); NRBC Auto 0.0 /100 WBC (0.0-0.2); Platelet Count 313 K/mm3 (150-400); RDW Coefficient Variation 13.4 % (11.7-14.2); RDW Standard Deviation 42.9 fL (35.1-46.3)
[2024-12-30 14:26] LABS: Alanine Aminotransfer (ALT/SGP 22.0 U/L (12-78); Albumin, Blood 3.6 g/dL (3.4-5.0); Albumin/Globulin Ratio 0.8 (0.8-1.8); Anion Gap 11.0 mmol/L (3-11); Aspartate Aminotrans (AST/SGOT 26.0 U/L (12-37); Bilirubin, Total 0.5 mg/dL (0.1-1.0); Blood Urea Nitrogen 15.0 mg/dL (8-24); CO2, Blood 25.0 mmol/L (21-32); Calcium, Blood 9.6 mg/dL (8.5-10.1); Chloride, Blood 93.0 mmol/L (98-108); Creatinine, Blood 1.5 mg/dL (0.60-1.20); Globulin, Blood 4.3 g/dL (2.2-4.0); Glucose, Blood 91.0 mg/dL (70-99); Potassium, Blood 4.2 mmol/L (3.5-5.5); Sodium, Blood 125.0 mmol/L (136-145); Total Protein, Blood 7.9 g/dL (6.4-8.2)
[2024-12-30] MEDS ORDERED: FLU VACC TS2025(65UP)/MF59C/PF 45 MCG/0.5 ML SYRINGE IM SCH (16:00)
[2024-12-30 17:29] VITALS: BP 169/89
[2024-12-30 18:04] VITALS: BP 168/96
[2024-12-30] MEDS ORDERED: Darbepoetin (Pharmacy Consult) SC PRN (18:35)
[2024-12-30 19:21] LABS: Hematocrit 39.4 % (37.0-53.0); Hemoglobin 13.2 g/dL (13.5-17.5)
[2024-12-30] MEDS ORDERED: SOAANZ20 M2 PO (19:32)
[2024-12-30] MEDS ORDERED: STIOLTO RESPIMAT4 G1 INH (19:32)
[2024-12-30] MEDS ORDERED: PANT20 PO (19:33)
[2024-12-30] MEDS ORDERED: METO10 PO (19:33)
[2024-12-30] MEDS ORDERED: SODCHL1 PO (19:34)
[2024-12-30] MEDS ORDERED: LOSA50 PO (19:34)
[2024-12-30] MEDS ORDERED: OMEGA-3 FISH O1 EA20 (19:36)
[2024-12-30] MEDS ORDERED: MOME220I (19:37)
[2024-12-30] MEDS ORDERED: THERA-D2000 UNIT (19:37)
--- NOTE | 2024-12-30 20:00 | NUR ---
SHIFT SUMMARY- PT ALERT AND ORIENTED 1P SBA WITH AMBULATION (INDEPENDENT AT BASELINE). PT ADMITTED FOR CHF EXACERBATION WITH C/O SOB. ON ARRIVAL TO MED FLOOR THE PT WAS PLACED ON TELE VS CHECKED IV LASIX AND JARDIANCE GIVEN STATLOCK WAS CHANGED AND THE HUGHES LEG BAG WAS CHANGED TO A BED BAG. PT HAS HAD NEARLY 3L OF URINE OUTPUT SINCE ARRIVING ON MED FLOOR. HECTOR CONSULT WAS CALLED VERBAL ORDERS RECIEVED, PT PLACED ON 1L FLUID RESTRICTION. ORDER FOR NIGHT RN TO CALL HECTOR WITH LAB VALUES. LAB HAS BEEN UNABLE TO DRAW BLOOD FROM THE PT. PASSED ON IN BEDSIDE REPORT TO NIGHT RN. PT IN BED, SPOUSE AT THE BEDSIDE. PT USES HOME CPAP SPOUSE WILL BRING IT TOMORROW NIGHT HE WILL NEED A HOSPITAL CPAP FOR TONIGHT. PASSED ON TO NIGHT RN THERE IS NO ORDER FOR CPAP AT THIS TIME.
[2024-12-30] MEDS ORDERED: HydrALAZINE HCl 20 MG / ML 1ML Vial IV PRN (20:10)
[2024-12-30] MEDS ORDERED: Ipratropium/Albuterol SulF 2.5-0.5MG/3 ML Amp INH SCH (20:15)
[2024-12-30] MEDS ORDERED: Darbepoetin (Pharmacy Consult) SC SCH (20:25)
[2024-12-30] MEDS ORDERED: Formoterol/Mometasone MDI 5/200 mcg 13 GM INH SCH (20:35)
[2024-12-30 21:01] LABS: Albumin, Blood 4.1 g/dL (3.4-5.0); Anion Gap 10 mmol/L (3-11); Blood Urea Nitrogen 13 mg/dL (8-24); CO2, Blood 28 mmol/L (21-32); Calcium, Blood 10.4 mg/dL (8.5-10.1); Chloride, Blood 94 mmol/L (98-108); Creatinine, Blood 1.55 mg/dL (0.60-1.20); Glucose, Blood 98 mg/dL (70-99); Magnesium, Blood 2.2 mg/dL (1.6-2.4); Phosphorus, Blood 3.0 mg/dL (2.5-4.9); Potassium, Blood 3.7 mmol/L (3.5-5.5); Sodium, Blood 128 mmol/L (136-145)
[2024-12-30] MEDS ORDERED: Potassium Chloride 10 Meq Tablet SA PO SCH (21:20)
[2024-12-30] MEDS ORDERED: CEPH500 PO (21:20)
[2024-12-30 23:10] VITALS: BP 172/104
[2024-12-31] VITALS (7 sets, daily range): BP systolic 133–180; BP diastolic 71–103
[2024-12-31] MEDS ORDERED: Mometasone Furoate Inhaler 220 mcg 14 ACT INH SCH ×2 (04:00→04:05)
[2024-12-31] MEDS ORDERED: Ipratropium/Albuterol SulF 2.5-0.5MG/3 ML Amp INH SCH (04:05)
[2024-12-31 05:15] LABS: BASOPHILS ABSOLUTE AUTO 0.04 K/mm3 (0.00-0.23); BASOPHILS PERCENT AUTO 1 % (0-2); EOSINOPHILS ABSOLUTE AUTO 0.13 K/mm3 (0.00-0.68); EOSINOPHILS PERCENT AUTO 2 % (0-6); Hematocrit 36.4 % (37.0-53.0); Hemoglobin 12.7 g/dL (13.5-17.5); IMMATURE GRAN ABSOLUTE AUTO 0.10 K/mm3 (0.00-0.10); IMMATURE GRAN PERCENT AUTO 1 % (0-1); LYMPHOCYTES ABSOLUTE AUTO 1.07 K/mm3 (0.84-5.20); LYMPHOCYTES PERCENT AUTO 14 % (21-46); MONOCYTES ABSOLUTE AUTO 0.84 K/mm3 (0.16-1.47); MONOCYTES PERCENT AUTO 11 % (4-13); Mean Corpuscular HGB Conc 34.9 g/dL (31.5-36.5); Mean Corpuscular Volume 87 fL (80-100); NEUTROPHILS ABSOLUTE AUTO 5.50 K/mm3 (1.96-9.15); NEUTROPHILS PERCENT AUTO 72 % (41-73); NRBC ABSOLUTE 0.00 K/mm3 (0.00-0.02); NRBC Auto 0.0 /100 WBC (0.0-0.2); Platelet Count 310 K/mm3 (150-400); RDW Coefficient Variation 13.5 % (11.7-14.2); RDW Standard Deviation 42.2 fL (35.1-46.3)
[2024-12-31 05:57] LABS: Albumin, Blood 3.6 g/dL (3.4-5.0); Anion Gap 10 mmol/L (3-11); Blood Urea Nitrogen 15 mg/dL (8-24); CO2, Blood 26 mmol/L (21-32); Calcium, Blood 10.1 mg/dL (8.5-10.1); Chloride, Blood 97 mmol/L (98-108); Creatinine, Blood 1.62 mg/dL (0.60-1.20); Glucose, Blood 100 mg/dL (70-99); Magnesium, Blood 2.3 mg/dL (1.6-2.4); Phosphorus, Blood 3.1 mg/dL (2.5-4.9); Potassium, Blood 3.3 mmol/L (3.5-5.5); Sodium, Blood 130 mmol/L (136-145)
[2024-12-31] MEDS ORDERED: Potassium Chloride 10 Meq Tablet SA PO ONE (06:35)
--- NOTE | 2024-12-31 06:50 | NUR ---
SHIFT SUMMARY A/Ox4, PLEASANT. ELEVATED SBP, OTHER VSS ON CPAP THEN 1L BY NASAL CANNULA. PT REFUSED CPAP; HOME SYSTEM WILL BE DELIVERED BY SPOUSE TODAY. CONTINUOUS PULSE OX IN PLACE. PT DENIES PAIN, NAUSEA. REPORTS SOB WITH EXERTION. PT REPORTS HE DID NOT SLEEP. DR. YOUNG AT BEDSIDE AT 0630; NEW ORDERS RECEIVED. PRN HYDRALAZINE GIVE FOR SBP 172. CURRENTLY ON BEDREST. STRICT 1/0s, [address].
[2024-12-31] MEDS ORDERED: Enoxaparin 40 MG/0.4 ML SYR SC SCH (09:00)
[2024-12-31] MEDS ORDERED: Potassium Chloride 10 Meq Tablet SA PO SCH (09:00)
[2024-12-31] MEDS ORDERED: Folic Acid 1 MG TAB PO SCH (09:00)
[2024-12-31] MEDS ORDERED: Ondansetron HCl 2 MG / ML 2ML Vial IV PRN (16:35)
[2024-12-31] MEDS ORDERED: FISH OIL 1,0001 EA10 PO (18:30)
[2024-12-31] MEDS ORDERED: THERA-D2000 UNIT PO (18:30)
[2024-12-31] MEDS ORDERED: GABA300 PO (18:37)
[2025-01-01 00:32] VITALS: BP 139/72
[2025-01-01 05:12] VITALS: BP 144/71
[2025-01-01 05:55] LABS: Hematocrit 34.8 % (37.0-53.0); Hemoglobin 11.8 g/dL (13.5-17.5)
[2025-01-01 06:12] LABS: Albumin, Blood 3.1 g/dL (3.4-5.0); Anion Gap 13 mmol/L (3-11); Blood Urea Nitrogen 26 mg/dL (8-24); CO2, Blood 24 mmol/L (21-32); Calcium, Blood 9.6 mg/dL (8.5-10.1); Chloride, Blood 99 mmol/L (98-108); Creatinine, Blood 2.14 mg/dL (0.60-1.20); Glucose, Blood 93 mg/dL (70-99); Magnesium, Blood 2.3 mg/dL (1.6-2.4); Phosphorus, Blood 5.0 mg/dL (2.5-4.9); Potassium, Blood 4.9 mmol/L (3.5-5.5); Sodium, Blood 131 mmol/L (136-145)
--- NOTE | 2025-01-01 06:41 | NUR ---
SHIFT SUMMARY A/Ox4, VSS ON RA WITH CPAP AT NIGHT. TELE MONITORING; V-PACED, HR 61. [address], STRICT I/Os. NO ACUTE CHANGES OVERNIGHT. SAFETY PRECAUTIONS IN PLACE, CALL LIGHT IN REACH.
[2025-01-01 07:17] VITALS: BP 129/68
[2025-01-01 11:14] VITALS: BP 141/82
[2025-01-01 15:22] VITALS: BP 140/83
--- NOTE | 2025-01-01 18:27 | NUR ---
SHIFT SUMMARY PT HERE FOR CHF EXASCERBATION. DIURESING WELL, ON LASIX. URINE DRAINING VIA SUPRAPUBIC CATHETER. EDEMA IMPROVING. PACED RHYTHM ON TELE, VSS, RA DURING DAY AND CPAP HS. PT PLEASANT AND COOPERATIVE WITH CARE, CALL LIGHT IN REACH, PLAN TO DISCHARGE TOMORROW.
[2025-01-01 20:02] VITALS: BP 157/77
--- NOTE | 2025-01-01 23:29 | NUR ---
TRANSFER OF CARE NOTE REPORT GIVEN TO MANUEL Burnett WHO IS TAKING OVER CARE. PT RESTING, RT ASSISTED WITH CPAP. CALL LIGHT IN REACH.
[2025-01-02 00:03] VITALS: BP 150/74
[2025-01-02 04:31] VITALS: BP 153/83
--- NOTE | 2025-01-02 04:47 | NUR ---
SHIFT SUMMARY PT ALERT AND ORIENTED TIMES 3-4. PT ADMITTED FOR ON CHRONIC CHF EXACERBATION. PT HAS RIGHT HAND IV, ON TELE V PAVED 62. PT WAS DIURESED WITH LASIX 60 MG IV X 1 WITH OUTPUT OF 6550 ML. PT SLEEP APNEA AND IS COMPLIANT WITH C-PAP MACHINE. PT IS ON 2000ML FLUID RESTRICTION AND HAS DAILY WEIGHTS. PT IS COOPERATIVE WITH CARE AND ABLE TO MAKE NEEDS KNOWN. BED IS AT LOW POSITION, RAILS TIMES TWO, AND CALL LIGHT WITHIN REACH.
[2025-01-02 05:12] LABS: Hematocrit 37.0 % (37.0-53.0); Hemoglobin 12.3 g/dL (13.5-17.5)
[2025-01-02 06:05] LABS: Albumin, Blood 3.4 g/dL (3.4-5.0); Anion Gap 12 mmol/L (3-11); Blood Urea Nitrogen 27 mg/dL (8-24); CO2, Blood 25 mmol/L (21-32); Calcium, Blood 9.6 mg/dL (8.5-10.1); Chloride, Blood 99 mmol/L (98-108); Creatinine, Blood 1.95 mg/dL (0.60-1.20); Glucose, Blood 98 mg/dL (70-99); Magnesium, Blood 2.4 mg/dL (1.6-2.4); Phosphorus, Blood 4.4 mg/dL (2.5-4.9); Potassium, Blood 3.9 mmol/L (3.5-5.5); Sodium, Blood 132 mmol/L (136-145)
[2025-01-02 07:33] VITALS: BP 137/73
[2025-01-02] MEDS ORDERED: FURO40 PO (10:50)
[2025-01-02] MEDS ORDERED: JARDIANCE10 MG PO (10:50)
--- NOTE | 2025-01-02 13:24 | NUR ---
ASSUMED CARE A/O X 4 ASSISTED OUT OF BED TO CHAIR, CHRONIC SUPERPUBIC CATH DRAINING CLR YELLOW. NO C/O PAIN NO DISTRESS, VVS CALLS APPROPRIATLLY.
--- NOTE | 2025-01-02 13:25 | NUR ---
DISCHARGE ORDERS DR MENA INTO SEE PT DISCHARGE ORDERS IMPLEMENTED IV DCED 1100 PT DISCHARGED
== END 2025-01-02 12:57 | disposition home or self-care (01) | DRG 291 ==
LOC: ER 12:49 → MEDS 16:03
PROVIDERS: Internal Medicine Nephrology; Physician Assistant; ADMIT Family Medicine
DX: I13.0 Hypertensive heart and chronic kidney disease with heart failure and stage 1 through stage 4 chronic kidney disease, or unspecified chronic kidney disease (principal); I50.33 Acute on chronic diastolic (congestive) heart failure; E87.1 Hypo-osmolality and hyponatremia; N17.9 Acute kidney failure, unspecified; I48.20 Chronic atrial fibrillation, unspecified; K21.9 Gastro-esophageal reflux disease without esophagitis; F32.A Depression, unspecified; E83.39 Other disorders of phosphorus metabolism; G47.00 Insomnia, unspecified; G62.9 Polyneuropathy, unspecified; J44.9 Chronic obstructive pulmonary disease, unspecified; N18.32 Chronic kidney disease, stage 3b; G25.81 Restless legs syndrome; Z85.46 Personal history of malignant neoplasm of prostate; Z92.3 Personal history of irradiation; Z99.81 Dependence on supplemental oxygen; E87.6 Hypokalemia; E83.52 Hypercalcemia; D63.1 Anemia in chronic kidney disease; M10.9 Gout, unspecified; E78.5 Hyperlipidemia, unspecified; Z98.890 Other specified postprocedural states; Z79.84 Long term (current) use of oral hypoglycemic drugs; Z79.899 Other long term (current) drug therapy; Z79.01 Long term (current) use of anticoagulants
CPT/HCPCS: 36415; 71046; 76770; 80053; 80069; 83690; 83735; 83880; 84443; 84484; 85014; 85018; 85025; 93005; 93010; 94640; 94660; 94664; 94762; 99285-25; A9270; J0360; J1938; J2405